=== PATIENT | male | born 1990 | race Caucasian/White ===

== ENCOUNTER 2021-06-16 08:31 | Emergency (ER) | payer OTHER ==
--- NOTE | 2021-06-16 09:44 | EDM.PDOC ---
ED HPI GENERAL MEDICAL PROBLEM - General Chief Complaint: Laceration Stated Complaint: LACERATION LEFT THUMB Time Seen by Provider: 06/16/21 08:36 Source of Information: Reports: Patient History Limitations: Reports: No Limitations - History of Present Illness INITIAL COMMENTS - FREE TEXT/NARRATIVE: 31-year-old male presents ED complaining of a laceration to the distal tip of h is left thumb. Patient only came to the ER because he could not get it to stop bleeding. Patient was cutting up a deer after hunting season patient was wearing gloves when the knife went through with the tip of his finger. No other complaints. Patient denies chest pain shortness of breath or dizzy lightheaded, nausea vomiting. Treatments PROPERTY ACCOUNTANT: Reports: Other (see below) (Direct pressure Band-Aid) Review of Systems - Review of Systems Review Of Systems: See Below Constitutional: Reports: No Symptoms Eyes: Reports: No Symptoms Ears: Reports: No Symptoms Nose: Reports: No Symptoms Mouth/Throat: Reports: No Symptoms Respiratory: Reports: No Symptoms Cardiovascular: Reports: No Symptoms GI/Abdominal: Reports: No Symptoms Genitourinary: Reports: No Symptoms Musculoskeletal: Reports: No Symptoms Skin: Reports: No Symptoms Neurological: Reports: No Symptoms Psychiatric: Reports: No Symptoms ED EXAM, GENERAL - Physical Exam Exam: See Below Free Text/Narrative:: Focused exam: Cardiac, respiratory, left thumb. Cardiac: Regular rate and rhythm no murmur noted. Respiratory: No increased work of breathing no accessory muscle use, lung sounds clear bilaterally Left thumb: Patient has a small skin flap oblique elliptical avulsion. Minimal blood supply to skin flap. Minor bleeding. No gross contamination of the wound ED TRAUMA EXTREMITY PROCEDURES - Laceration/Wound Repair Left Distal Digit - 1st (Thumb) Lac/Wound Length In cm: 5 Appearance: Superficial, Clean, Other (Oblique elliptical skin flap) Anesthetic Type: Local Local Anesthesia - Lidocaine (Xylocaine): 1% Plain Local Anesthetic Volume: 1cc Skin Prep: Providone-Iodine (Betadine) Exploration/Debridement/Repair: Wound Explored, Explored to Base, No Foreign Material Found Progress/Comments: Bleeding control was attempted with Surgicel without success. always sleepy and hemostasis was achieved with application of silver nitrate x1 stick. Patient's wound was covered with a Band-Aid advised to wear examination glove while continuing to process his deer. Departure - Departure Time of Disposition: 09:03 Disposition: Home, Self-Care 01 Condition: Good Clinical Impression: Laceration - Discharge Information *PRESCRIPTION DRUG MONITORING PROGRAM REVIEWED*: No *COPY OF PRESCRIPTION DRUG MONITORING REPORT IN PATIENT [place]: No Instructions: Laceration Care, Adult Referrals: PCP,None [Primary Care Provider] - Forms: ED Department Discharge Additional Instructions: Return to clinic or ED if s/s of infection.,increased redness, swelling or pain. - Assessment/Plan Assessment:: Laceration to the left distal thumb, no evidence of infection or contamination. Patient seeking only hemostasis Plan: ABC, history, exam, wound irrigation and cleanse local anesthesia for exploration, silver nitrate for hemostasis after unsuccessful Surgicel use, dressed and bandaged with a Band-Aid, patient advised to wear examination glove when processing the deer meat today to keep wound clean. Patient understood treatment plan and agreed all questions were answered to his satisfaction patient discharged in stable condition
== END 2021-06-16 09:03 | disposition home or self-care (01) ==
LOC: LB.ED 08:31
DX: S61.012A Laceration without foreign body of left thumb without damage to nail, initial encounter (principal); W26.0XXA Contact with knife, initial encounter
CPT/HCPCS: 99282